=== PATIENT | female | born 1995 | race Caucasian/White ===

== ENCOUNTER 2016-05-11 16:53 | Emergency (ER) | payer BC ==
[2016-05-11 16:59] VITALS: RESP 16
[2016-05-11] MEDS ORDERED: ONDANSETRON DISINTEGRATING 4 MG TAB ONE (17:10)
[2016-05-11] MEDS ORDERED: ONDANSETRON DISINTEGRATING 4 MG TAB PO ONE (17:11)
--- NOTE | 2016-05-11 17:16 | EDPHY ---
H & P Stated Complaint: hit head -LOC Time Seen by Provider: 05/11/16 17:13 - Personal History LMP (Females 10-55): Current Tetanus/Diphtheria Vaccine: Unsure Current Tetanus Diphtheria and Acellular Pertussis (TDAP): Unsure - Medical/Surgical History Hx Asthma: No Hx Chronic Respiratory Disease: No Hx Diabetes: No Hx Cardiac Disease: No Hx Renal Disease: No Hx Cirrhosis: No Hx Alcoholism: No Hx HIV/AIDS: No Hx Splenectomy or Spleen Trauma: No - Social History Smoking Status: Never smoked Constitutional: Initial Vital Signs Temperature (C) 36.2 C 05/11/16 16:56 Heart Rate 70 05/11/16 16:56 Respiratory Rate 16 05/11/16 16:56 Blood Pressure 145/95 H 05/11/16 16:56 O2 Sat (%) 98 05/11/16 16:56 O2 Delivery Mode Room Air Allergies/Adverse Reactions: No Known Allergies Allergy (Unverified 05/11/16 16:59) Medical Decision Making ED Course/Re-evaluation: CHIEF COMPLAINT: Head injury, nausea. HISTORY OF PRESENT ILLNESS: The patient is a 21-year-old female who presents after hitting her head on playground equipment an hour ago. She did not lose consciousness. She has felt nauseated and dizzy since hitting her head. She denies vomiting or other complaints. REVIEW OF SYSTEMS: A 10 point review of systems was performed and is negative with the exception of the elements mentioned in the history of present illness. PHYSICAL EXAM: HR, BP, O2 Sat, RR. Temp noted General Appearance: Alert, well hydrated, appropriate, and non-toxic appearing. Head: Atraumatic without scalp tenderness or obvious injury Eyes: Pupils equal, round, reactive to light and accommodation, EOMI, no trauma , no injection. Ears: Clear bilaterally, no perforation, normal landmarks Nose: Atraumatic, no rhinorrhea, clear. Throat: There is no erythema or exudates, no lesions, normal tonsils, mucus membranes moist. Neck: Supple, 2+ carotid upstroke, nontender, no lymphadenopathy. Respiratory: No retractions, no distress, no wheezes, and no accessory muscle use. Lungs are clear to auscultation bilaterally. Cardiovascular: Regular rate and rhythm, no murmurs, rubs, or gallops. Bilateral carotid, radial, dorsalis pedis, and posterior tibial pulses intact. Good capillary refill all extremities. Gastrointestinal: Abdomen is soft, nontender, non-distended, no masses, no rebound, no guarding, no peritoneal signs. Musculoskeletal: Normal active ROM of all extremities, atraumatic. Neurological: Alert, appropriate, and interactive. The patient has normal DTRs and non-focal cranial nerves, motor, sensory, and cerebellar exam. Skin: No rashes, good turgor, no nodules on palpation. Past medical history:Denies. Past surgical history:Denies. Family history:Non-contributory. Social history:Here with boyfriend. DIFFERENTIAL DIAGNOSIS: The differential diagnosis for the patient includes but is not limited to concussion, skull fracture, intracranial hemorrhage, contusion, hematoma. MEDICAL DECISION MAKING: This is a 21-year-old female who presents after hitting her head on playground equipment an hour ago. She has been nauseated since then. I have low concern for intracranial injury as she did not lose consciousness and has not vomited. I will order a head CT to rule out intracranial process. On arrival to CT the patient reported she was 12 weeks . She will be discharged with concussion precautions and given concussion follow up. I discussed this with the patient and answered her questions. She was given warnings and return precautions prior to discharge. She is comfortable with the plan. - Data Points Medications Given: Discontinued Medications Ondansetron HCl (Zofran Odt) 4 mg PO EDNOW ONE Stop: 05/11/16 17:12 Last Admin: 05/11/16 17:14 Dose: 4 mg Departure - Departure Disposition: Home, Routine, Self-Care Clinical Impression: Concussion Qualifiers: Encounter type: initial encounter Loss of consciousness presence/duration: without LOC Qualifier Code: (S06.0X0A) Concussion without loss of consciousness , initial encounter Condition: Good Instructions: Concussion (ED) Additional Instructions: Call Dr. Harvey, concussion specialist, tomorrow to set up a follow up appointment. Return to the emergency department for vomiting, confusion, lethargy, or other serious worsening of condition. Referrals: Jennie Harvey MD [Medical Doctor] - As per Instructions Report Scribed for: Drew Gu Report Scribed by: Jeramy Olivera Date of Report: 05/11/16 Time of Report: 17:31
[2016-05-11 18:08] VITALS: BP 132/84; TEMP 98.1
[2016-05-11 18:12] VITALS: PULSE 110; O2SAT 97
== END 2016-05-11 18:07 | disposition home or self-care (01) ==
DX: O9A.211 Injury, poisoning and certain other consequences of external causes complicating pregnancy, first trimester (principal); S06.0X0A Concussion without loss of consciousness, initial encounter; Z3A.12 12 weeks gestation of pregnancy; W22.8XXA Striking against or struck by other objects, initial encounter; Y93.89 Activity, other specified